=== PATIENT | female | born 1995 | race Caucasian/White ===

== ENCOUNTER 2021-05-01 18:34 | Emergency (ER) | payer OTHER ==
[2021-05-01 20:08] LABS: HEMOGLOBIN 13.2 gm/dl (12.3-15.3); RED BLOOD COUNT 4.56 M/UL (4.00-5.10)
[2021-05-01 20:31] LABS: BUN/CREATININE RATIO 30 (0-10)
[2021-05-02] MEDS ORDERED: LODINE CAP 300300 MG PO (01:04)
[2021-05-02] MEDS ORDERED: DOXYCYCLINE MO100 MG PO (01:04)
== END 2021-05-02 01:10 | disposition home or self-care (01) ==
LOC: ER1 18:34
PROVIDERS: Physician Assistant
DX: S50.861A Insect bite (nonvenomous) of right forearm, initial encounter (principal); S00.06XA Insect bite (nonvenomous) of scalp, initial encounter; M25.562 Pain in left knee; M25.572 Pain in left ankle and joints of left foot; F17.210 Nicotine dependence, cigarettes, uncomplicated; W57.XXXA Bitten or stung by nonvenomous insect and other nonvenomous arthropods, initial encounter
CPT/HCPCS: 80053; 85025; 85652; 86140; 86618; 86757; 99283